=== PATIENT | female | born 1990 | race Caucasian/White ===

== ENCOUNTER 2018-05-10 04:12 | Inpatient (IN) | payer OTHER ==
[2018-05-10] MEDS: LACTATED RINGER'S 1000 ML IV (05:30)
[2018-05-10 05:54] LABS: HEMATOCRIT 33.8 % (36.0-47.0); HEMOGLOBIN 11.3 g/dl (12.0-15.5); MEAN CORPUSCULAR HGB CONC 33.4 g/dl (32.0-36.5); MEAN CORPUSCULAR VOLUME 89.7 fl (80.0-96.0); PLATELET COUNT, AUTOMATED 228 10^3/uL (150-450); RED BLOOD COUNT 3.77 10^6/uL (4.00-5.40); RED CELL DISTRIBUTION WIDTH 15.7 % (11.5-14.5); WHITE BLOOD COUNT 10.9 10^3/uL (4.0-10.0)
[2018-05-10] MEDS: LR 1,000 ML IV ×3 (05:55→21:29)
[2018-05-10] MEDS: NALBUPHINE HCL 10 MG/ML AMP (J2300) IV (08:15)
[2018-05-10] MEDS: NALBUPHINE HCL 10 MG/ML AMP (J2300) IM (08:15)
[2018-05-10] MEDS: OXYTOCIN DRIP 30 UNITS in APPROPRIATE DILUENT 1 EA IV (11:05)
[2018-05-10] MEDS: PROMETHAZINE INJ 25 MG/ML VIAL (J2550) IV (13:03)
[2018-05-10] MEDS ORDERED: FENTANYL 2MCG/ML ROPIVACAINE 0.2% IN 0.9% NACL 200ML IVBAG As Ordered (15:51)
[2018-05-10] MEDS ORDERED: ePHEDrine SULFATE 25 MG/5 ML(5MG/ML) SYRINGE IV (17:30)
[2018-05-10] MEDS ORDERED: EPIDURAL COMMENT XX (17:30)
[2018-05-10] MEDS ORDERED: LACTATED RINGER'S 1000 ML IV (17:30)
[2018-05-10] MEDS ORDERED: diphenhydrAMINE INJ 50MG/ML VIAL (J1200) IV (17:30)
[2018-05-10] MEDS ORDERED: ONDANSETRON 4MG/2ML VIAL (J2405) IV (17:30)
[2018-05-10] MEDS ORDERED: EPIDURAL/PCA KEYS XX (17:30)
[2018-05-10] MEDS ORDERED: REFRIGERATOR IV KEYS XX (17:30)
[2018-05-10] MEDS ORDERED: NALOXONE INJ 0.4 MG/1 ML VIAL (J2310) IV (17:30)
[2018-05-10] MEDS: FENTANYL/ROPIVACAINE/NACL BAG 200 ML EPIDURAL (19:20)
[2018-05-11] MEDS ORDERED: ceFAZolin 2 GM/D5W 50 ML IV BAG (J0690 PER 500MG) As Ordered (03:08)
[2018-05-11] MEDS ORDERED: BICITRA 30ML SOLN UDC As Ordered (03:09)
[2018-05-11] MEDS ORDERED: AZITHROMYCIN INJ 500MG VIAL (J0456) As Ordered (03:09)
[2018-05-11] MEDS: AZITHROMYCIN INJ 500 MG, VIAL MATE ADAPTER 1 EACH in D5W 250 ML IV (03:15)
[2018-05-11] MEDS ORDERED: ACETAMINOPHEN 650 MG SUPP PR (03:15)
[2018-05-11] MEDS: BICITRA 30ML SOLN UDC PO (03:15)
[2018-05-11] MEDS: BUPIVACAINE HCL 0.25% 10 ML VIAL SC (03:15)
[2018-05-11] MEDS ORDERED: KETOROLAC 60 MG/2 ML VIAL (J1885) As Ordered (03:53)
[2018-05-11] MEDS ORDERED: OXYTOCIN INJ 10 UNITS/ML VIAL (J2590) As Ordered ×3 (03:53→04:00)
[2018-05-11] MEDS ORDERED: ONDANSETRON 4MG/2ML VIAL (J2405) As Ordered (03:53)
[2018-05-11] MEDS ORDERED: LIDOCAINE 2% W/EPIN INJ 20ML **PRES FREE As Ordered (04:02)
[2018-05-11 04:18] LABS: CORD GAS ABE V -1.6; CORD GAS HCO3 V 23.7 MEQ/L; CORD GAS O2 SAT V 65.3 %; CORD GAS PCO2 V 42.1 mmHg; CORD GAS PH V 7.369 UNITS; CORD GAS PO2 V 27.1 mmHg; CORD GAS SBC V 22.3 MEQ/L
[2018-05-11 04:21] LABS: CORD GAS ABE A -2.9; CORD GAS HCO3 A 24.2 MEQ/L; CORD GAS O2 SAT A < 15.0 %; CORD GAS PCO2 A 51.2 mmHg; CORD GAS PH A 7.293 UNITS; CORD GAS PO2 A < 10.0 mmHg; CORD GAS TCO2 A 25.8 MEQ/L
[2018-05-11] MEDS ORDERED: MORPHINE PRES-FREE INJ 10 MG/10 ML VIAL (J2274) As Ordered (04:24)
[2018-05-11] MEDS ORDERED: NALOXONE INJ 0.4 MG/1 ML VIAL (J2310) IV ×2 (04:30)
[2018-05-11] MEDS ORDERED: NALBUPHINE HCL 10 MG/ML AMP (J2300) IV (04:30)
[2018-05-11] MEDS ORDERED: ONDANSETRON 4MG/2ML VIAL (J2405) IV (04:30)
[2018-05-11] MEDS ORDERED: METOCLOPRAMIDE INJ 10MG/2ML VIAL (J2765) IV (04:30)
[2018-05-11] MEDS ORDERED: MEASLES,MUMPS,RUBELLA VACCINE INJ (MMR-II) (90707) SC (04:45)
[2018-05-11] MEDS ORDERED: RHOGAM 300 MCG (1500 IU) INJ (J2790) IM (04:45)
[2018-05-11] MEDS ORDERED: METHYLERGONOVINE MALEATE 0.2 MG TAB PO (04:45)
[2018-05-11] MEDS ORDERED: ANUSOL HC CREAM 30GM TOP (04:45)
[2018-05-11] MEDS ORDERED: PERCOCET 5MG/325MG TAB PO (04:45)
[2018-05-11] MEDS ORDERED: MOM 30ML SUSPENSION UDC PO (04:45)
[2018-05-11] MEDS ORDERED: OXYTOCIN DRIP 30 UNITS in APPROPRIATE DILUENT 1 EA IV (04:45)
[2018-05-11] MEDS: LR 1,000 ML IV ×2 (05:29→12:39)
[2018-05-11] MEDS: PRENATAL VITAMINS CHEWABLE TABLET PO (08:09)
[2018-05-11] MEDS: PERCOCET 5MG/325MG TAB PO (08:10)
[2018-05-11] MEDS: KETOROLAC 30 MG/ML VIAL (J1885) IV ×3 (10:05→22:10)
[2018-05-12] MEDS: KETOROLAC 30 MG/ML VIAL (J1885) IV (04:33)
[2018-05-12 07:40] LABS: HEMOGLOBIN 8.6 g/dl (12.0-15.5); MEAN CORPUSCULAR HEMOGLOBIN 29.7 pg (27.0-33.0); MEAN CORPUSCULAR HGB CONC 33.1 g/dl (32.0-36.5); MEAN CORPUSCULAR VOLUME 89.7 fl (80.0-96.0); PLATELET COUNT, AUTOMATED 170 10^3/uL (150-450); RED CELL DISTRIBUTION WIDTH 15.7 % (11.5-14.5); WHITE BLOOD COUNT 13.6 10^3/uL (4.0-10.0)
[2018-05-12] MEDS: PERCOCET 5MG/325MG TAB PO ×2 (07:53→17:51)
[2018-05-12] MEDS: PRENATAL VITAMINS CHEWABLE TABLET PO (07:53)
[2018-05-12] MEDS: LR 1,000 ML IV ×3 (11:42→13:29)
[2018-05-12] MEDS: IBUPROFEN 800 MG TAB PO ×2 (12:07→19:47)
[2018-05-13] MEDS: IBUPROFEN 800 MG TAB PO (03:02)
[2018-05-13] MEDS: DOCUSATE SODIUM 100 MG CAP PO (08:23)
[2018-05-13] MEDS: PRENATAL VITAMINS CHEWABLE TABLET PO (08:23)
[2018-05-13] MEDS: PERCOCET 5MG/325MG TAB PO (08:24)
== END 2018-05-13 10:45 | disposition home or self-care (01) | DRG 766 ==
LOC: M LDO 04:12 → M OBS 05-11 06:57 → M LDI 05:28
PROVIDERS: Obstetrics & Gynecology
PROC: 10D00Z1 Extraction of Products of Conception, Low, Open Approach (ICD-10-PCS; principal; 2018-05-11 03:32)
DX: O64.0XX0 Obstructed labor due to incomplete rotation of fetal head, not applicable or unspecified (principal); Z37.0 Single live birth; Z3A.40 40 weeks gestation of pregnancy; O34.211 Maternal care for low transverse scar from previous cesarean delivery; O42.02 Full-term premature rupture of membranes, onset of labor within 24 hours of rupture; O66.40 Failed trial of labor, unspecified; O48.0 Post-term pregnancy; O62.0 Primary inadequate contractions; O32.4XX0 Maternal care for high head at term, not applicable or unspecified